=== PATIENT | female | born 1965 | race Two or more races ===

== ENCOUNTER → 2017-05-17 | Emergency (ER) | payer OTHER ==
[~2017-05-17] VITALS: Ht 162.6 cm; Wt 59.0 kg
[~2017-05-17] MED LIST: ANTIVERT25 M1 PO; CLONAZEPAM0.5 MG; FIORICET 50-321 EACH PO; NO SABE NOMBRE
== END | disposition home or self-care (01) ==
LOC: ER 21:18
DX: G44.209 Tension-type headache, unspecified, not intractable (principal)

== ENCOUNTER 2018-02-14 15:04 | Emergency (ER) | payer OTHER ==
[~2018-02-14] VITALS: Ht 157.5 cm; Wt 56.7 kg
== END 2018-02-14 20:38 | disposition home or self-care (01) ==
LOC: ER 15:04
DX: R68.84 Jaw pain (principal)

== ENCOUNTER 2019-05-25 11:22 | Emergency (ER) | payer OTHER ==
[~2019-05-25] VITALS: Ht 157.5 cm; Wt 56.7 kg
== END 2019-05-25 12:56 | disposition home or self-care (01) ==
LOC: ER 11:22
DX: M54.89 Other dorsalgia (principal)

== ENCOUNTER 2021-11-24 21:10 | Emergency (ER) | payer OTHER ==
[~2021-11-24] VITALS: Ht 157.5 cm; Wt 61.2 kg
[2021-11-24] MEDS ORDERED: ASA81 MG (21:29)
== END 2021-11-25 01:10 | disposition home or self-care (01) ==
LOC: ER 21:10
DX: K29.70 Gastritis, unspecified, without bleeding (principal)

== ENCOUNTER 2022-06-26 14:35 | Emergency (ER) | payer OTHER ==
[~2022-06-26] VITALS: Ht 157.5 cm; Wt 59.9 kg
[~2022-06-26 14:35] MED LIST changes: +ASA81 MG
== END 2022-06-26 22:30 | disposition home or self-care (01) ==
LOC: ER 14:35
DX: R51.9 Headache, unspecified (principal); R07.89 Other chest pain

== ENCOUNTER 2023-04-25 16:10 | Emergency (ER) | payer OTHER ==
[~2023-04-25] VITALS: Ht 154.9 cm; Wt 60.3 kg
[2023-04-25] MEDS ORDERED: DICLOFENAC SODI50 MG PO (20:47)
== END 2023-04-25 21:36 | disposition home or self-care (01) ==
LOC: ER 16:12
DX: G44.209 Tension-type headache, unspecified, not intractable (principal)
CPT/HCPCS: 70210; 72040; 96365; 99283; J1885

== ENCOUNTER 2023-06-22 12:42 | Emergency (ER) | payer OTHER ==
[~2023-06-22] VITALS: Ht 157.5 cm; Wt 62.6 kg
[~2023-06-22 12:42] MED LIST changes: +DICLOFENAC SODI50 MG PO
== END 2023-06-22 16:07 | disposition home or self-care (01) ==
LOC: ER 12:42
DX: H61.20 Impacted cerumen, unspecified ear (principal)

== ENCOUNTER 2024-06-09 15:20 | Emergency (ER) | payer OTHER ==
[~2024-06-09] VITALS: Ht 157.5 cm; Wt 63.5 kg
[2024-06-09] MEDS ORDERED: ORPHENADRINE CITRATE 30 MG/ML AMPUL IM ONE (16:45)
[2024-06-09] MEDS ORDERED: KETOROLAC TROMETHAMINE 30 MG VIAL IM ONE (16:45)
[2024-06-09] MEDS ORDERED: KETOROLAC TROMETHAMINE 30 MG VIAL ONE (17:18)
[2024-06-09] MEDS ORDERED: ORPHENADRINE CITRATE 30 MG/ML AMPUL ONE (17:18)
[2024-06-09] MEDS ORDERED: NORFLEX100MG PO (18:15)
== END 2024-06-09 18:23 ==
LOC: ER 15:23
DX: M62.830 Muscle spasm of back (principal); M54.9 Dorsalgia, unspecified; S49.82XA Other specified injuries of left shoulder and upper arm, initial encounter; W10.8XXA Fall (on) (from) other stairs and steps, initial encounter; Y93.89 Activity, other specified; Y92.89 Other specified places as the place of occurrence of the external cause; Y99.8 Other external cause status